=== PATIENT | female | born 1995 | race Caucasian/White ===

== ENCOUNTER 2021-09-18 07:55 | Outpatient (CLI) | payer OTHER, SELFPAY ==
--- NOTE | 2021-09-18 08:10 | US_ITS ---
WS: [id number] ULTRASOUND SOFT TISSUES LEFT neck HISTORY: Cervicalgia/swelling, mass, Lump, neck COMPARISON: None available. TECHNIQUE: 2-D and color Doppler imaging is submitted. Ultrasound is directed to the LEFT paramedian neck, just above the thyroid. There is a complex cystic mass measuring 2.5 x 2.3 x 2.6 cm. A few low-level echoes. There is through transmission. No increas ed vascularity. 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 Differential would include a small epidermoid or lymphatic malformation. US/US soft tissue/extremity 18471 IMPRESSION: Mildly complex cystic mass LEFT paramedian suprahyoid neck. Favor this is proba rox a thyroglossal duct cyst. If further evaluation is necessary CT neck with I V contrast may be helpful.
== END 2021-09-18 07:56 | disposition home or self-care (01) ==
PROVIDERS: PCP Nurse Practitioner; Visit Provider Otolaryngology
DX: R22.1 Localized swelling, mass and lump, neck (principal); Q89.2 Congenital malformations of other endocrine glands
CPT/HCPCS: 76882

== ENCOUNTER 2021-10-09 13:50 | Outpatient (CLI) | payer OTHER, SELFPAY ==
--- NOTE | 2021-10-09 14:07 | CT_ITS ---
WS: [id number] CT NECK WITH CONTRAST HISTORY: Dysphagia, OROPHARYNGEAL PHASE TECHNIQUE: Contiguous 5 mm axial images are performed through the neck with intravenous contrast. Sag ittal and coronal reformats are also submitted. All CT scans at [facility] use at least one o f these dose optimization techniques: automated exposure control; mA and/or kV adjustment per patient size (includes targeted exams where dose is matched to clinical indication); or iterative reconstruc tion. CONTRAST: CONTRAST: Omnipaque 300; 50 mL IV. DLP: 242.61 mGy.cm COMPARISON: Ultrasound 09/18/2021. There is a cystic mass which is well-circumscribed with a slightly enhancing wall centered just infer ior to the hyoid bone. This mass measures 2.6 x 2.3 x 2.2 cm with very slight mass effect upon the ph arynx. Mass is of low signal with mild enhancement of the wall. No adjacent lymph nodes. Small bilateral cervical chain lymph nodes. The visualized submandibular and parotid glands are kendal l. Oropharynx and nasopharynx are negative. Parapharyngeal fat is normal. No osseous abnormalities. Visualized portions of the skull base demonstrate no abnormalities. Orbits and globes are within norm al limits. No soft tissue masses. Visualized paranasal sinuses and mastoid air cells are normal. Lung apices are clear. CT/CT neck w con* [id number] IMPRESSION: 1. Midline cystic neck mass measures 2.6 x 2.3 x 2.2 cm. 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 2. Small bilateral cervical chain lymph nodes are subcentimeter. No additional mass identified.
[2021-10-09] MEDS: iohexol 300 mg/mL 100 mL Btl IV (14:49)
== END 2021-10-09 13:51 | disposition home or self-care (01) ==
LOC: RAD 13:51
PROVIDERS: PCP Nurse Practitioner; Visit Provider Otolaryngology
DX: R13.12 Dysphagia, oropharyngeal phase (principal); Q89.2 Congenital malformations of other endocrine glands
CPT/HCPCS: 70491

== ENCOUNTER 2021-11-17 09:00 | Observation (INO) | payer OTHER, SELFPAY ==
[2021-11-16 09:40] VITALS: BMI 29.7
[2021-11-17] VITALS (51 sets, daily range): BP systolic 101–131; BP diastolic 44–86; PULSE 46–72; RESP 10–26; TEMP 36.9; O2SAT 94–99
[2021-11-17 06:37] LABS: OR HCG Qualitative Urine Negative (Negative)
--- NOTE | 2021-11-17 06:45 | W.PM.OPSUD ---
Surgery/Procedure H&P Update DATE OF PROCEDURE: November 17, 2021 DATE H&P PERFORMED: 10/16/21 PRIMARY INDICATION FOR PROCEDURE: Cystic mass of the anterior midline hyoid area neck PLANNED PROCEDURE: Operation Date: 11/17/21 07:00 Proposed Procedures p Excision Neck Mass/Lesion/lynda procedure [id number],R22.1(Not Applicable) - Junior Recinos MD s Lynda Procedure(Not Applicable) - Junior Recinos MD
--- NOTE | 2021-11-17 06:57 | ANES.PREANE2 ---
Pre-Anesthetic Assessment Height/Weight: Height 1.78 m Weight 93.894 kg Temp Pulse Resp BP Pulse Ox 98.4 F 64 16 129/77 98 11/17/21 06:16 11/17/21 06:16 11/17/21 06:16 11/17/21 06:16 11/17/21 06:16 Operation Date: 11/17/21 07:00 Proposed Procedures p Excision Neck Mass/Lesion/lynda procedure [id number],R22.1(Not Applicable) - Junior Recinos MD s Lynda Procedure(Not Applicable) - Junior Recinos MD Familial anesthetic complications: None Was Beta Kevan taken within 24 hours: N/A Was Clonidine taken within 24 hours: N/A Last intake: Intake Last Liquid Date 11/16/21 Last Liquid Time 22:30 Last Solid Date 11/16/21 Last Solid Time 20:00 Social Tobacco (vapes) and No alcohol Exam alert, oriented x 3, clear to auscultation bilaterally and regular rate & rhythm Airway Mallampati: Class III Dentition: full Anesthetic Plan ASA status: 1 Anesthesia: General Risk of > 500 ml blood loss (7ml/kg in children): No Medications/Allergies Home Medications Medication Instructions Recorded Confirmed Last Taken Type minocycline 4 % topical foam 1 applic TOPICAL DAILY #30 g 12/11/20 11/17/21 Unknown Rx (Amzeeq) tazarotene 0.1 % topical cream 1 applic TOPICAL DAILY #60 g 12/15/20 11/17/21 Unknown Rx triamcinolone acetonide 0.5 % 1 applic TOPICAL BID 14 Days #15 g 04/06/21 11/17/21 Unknown Rx topical cream Allergies Allergy/AdvReac Type Severity Reaction Status Date / Time No Known Allergies Allergy Verified 11/16/21 09:39 [facility] Anesthesia Surgical History No pertinent past surgical history Social History Smoking and tobacco status: current every day smoker History of recent travel: No Female Reproductive History Date of last menstrual period: 11/01/21 Data Anesthesia Cardiac Studies: No Data to Display
[2021-11-17] MEDS: ceFAZolin 2,000 MG in sodium chloride 0.9% (plus) 50 ML 100 MG IV ×3 (07:00→22:48)
[2021-11-17] MEDS: ceFAZolin 1,000 mg SDV 1000 MG IRRIGATION (07:47)
[2021-11-17] MEDS: neomycin-poly-bacitracin oint 28 gm 1 APPLIC TOPICAL (08:48)
--- NOTE | 2021-11-17 09:03 | P.OP_ITS ---
Operative Report Date of procedure: November 17, 2021 Pre-op diagnosis: Anterior hyoid area neck mass Post-op diagnosis: same Post-op findings: Cystic mass of the anterior neck centered on the central hyoid bone Procedure done: Lynda procedure Implants: None Specimens removed/disposition: Anterior hyoid area neck mass Pathology: Anterior hyoid area neck mass Surgeon: Junior Recinos Steam Drier Operator: Nancy Hogan Anesthesia: General Estimated blood loss (mL): 10 IV fluids (mL): 1,000 Complications: None Findings: Large, anterior hyoid area cystic neck mass Condition: stable Disposition: ICU Brief History: 26 yo wf with a h/o an anterior hyoid area neck mass who desires surgical therapy. Procedure: The patient was identified the preoperative holding area and was taken to the operating room where she was placed on the operating table in supine position. Anesthesia was obtained with general endotracheal anesthesia. A horizontal skin incision was marked out over the anterior hyoid area neck mass with a marking pen and the incision was then injected with local anesthesia. The patient was then prepped and draped in the usual sterile fashion. The incision was made with a 15 blade and was carried down through the subcutaneous tissues using a Dunn dissector and bipolar cautery. The dissection proceeded down to the strap muscles which were then divided and in the sagittal plane in the avascular midline. The strap muscles were then divided and dissected off of the neck mass noted above. At this point a circumferential decision began around the mass beginning inferiorly and laterally. The thyroid notch was identified and the thyrohyoid membrane was identified and the mass was dissected from inferiorly to superiorly while keeping these structures intact. The dissection proceeded in a circumferential fashion using the Dunn dissector and bipolar cautery until its attachment point of the mass at the hyoid was identified. Using the Dunn dissector and cautery the central portion of the hyoid bone was dissected free from the surrounding tissues and was cut with bone forceps laterally and the body of the hyoid bone was removed to the lesser cornu. At this point the hyoid bone was grasped and a core of muscle was removed from the base of the tongue region including the central portion of the hyoid bone. At this point the wound was irrigated with a copious amount of normal saline and was inspected for hemostasis which was found to be adequate. The wound was then dusted with Maura and Surgicel was placed in the depth of the wound. A drain was placed in the wound and the wound was then closed with interrupted 4-0 Monocryl sutures subcu and running 5-0 subcuticular Monocryl. Skin was closed with Dermabond and Steri-Strips. At this point the procedure was terminated and control of the patient was returned to anesthesia where she underwent an uneventful reversal of anesthesia and extubation and was taken to the intensive care unit in stable condition. There were no operative or anesthetic complications
--- NOTE | 2021-11-17 09:05 | PC.NURSE ---
arrived from OR, AO x4, no c/o, follows commands
[2021-11-17] MEDS: famotidine 20 mg/2 mL INJ IVP ×2 (09:45→21:17)
[2021-11-17] MEDS: lactated ringers 1,000 ML 100 ML IV ×2 (09:45→19:28)
--- NOTE | 2021-11-17 09:57 | PC.NURSE ---
Patient c/o of severe pain, unable to swallow without increasing pain, Dr. Recinos gave t.o. for 1 to 2 mg morphine IVP q30 min PRN severe pain
[2021-11-17] MEDS: morphine 4 mg/mL SDV 1 mL IVP ×3 (10:17→14:51)
[2021-11-17] MEDS: phenol oral Spray 177 mL 5 SPRAY MUCOUS MEM (13:23)
--- NOTE | 2021-11-17 13:53 | ANE.PACU2 ---
Inpatient post-anesthesia follow up: Airway intact: Yes Vital signs: Temperature 98.4 F Pulse Rate 51 Respiratory Rate 16 Blood Pressure 120/61 Pulse Oximetry 97 Oxygen Delivery Me thod Room Air Oxygen Flow Rate Fraction of Inspir ed Oxygen Hydration adequate: Yes Nausea and vomiting: No Pain level: 1 Mental status: Baseline
[2021-11-17] MEDS: HYDROcodone-acetaminophen 5-325 mg Tablet 1 TAB PO ×2 (14:59→21:16)
[2021-11-17] MEDS: ondansetron 2 mg/ML SDV 2 mL 4 MG IVP ×2 (15:36→19:26)
--- NOTE | 2021-11-17 16:05 | PM.PN ---
Subjective Subjective: 26 yo wf who is day of surgery s/p Lynda procedure. The patient reports some periincisional pain, but is o/w without c/o. She is eating well, and is o/w doing well. Medications: Reviewed: Yes Vitals/I&O/Wt Last Vital Signs Temp 98.4 F 11/17/21 06:16 Pulse 51 L 11/17/21 11:55 Resp 12 11/17/21 14:51 BP 120/61 11/17/21 11:55 Pulse Ox 95 11/17/21 14:51 11/17/21 11/17/21 11/17/21 06:59 14:59 22:59 Intake Total 50 / 50 Balance 50 / 50 Weight last 48 hrs Weight 93.894 kg Physical Exam Const: COMMON NORMALS: no acute distress and patient oriented x3 HENMT: COMMON NORMALS: normocephalic, hearing grossly normal bilaterally and Normal external nose present HEAD & SCALP: normocephalic FACE & SINUS: normal facial exam NOSE: Normal external nose present Eye: COMMON NORMALS: EOMs intact bilaterally and no scleral icterus Neck/C-Spine: COMMON NORMALS: no lymphadenopathy GENERAL: Yes trachea midline and Yes other (Incision intact without swelling or erythema.) Resp: COMMON NORMALS: normal respiratory effort and No use of accessory muscles Cardio: COMMON NORMALS: regular rate and No murmurs present (Cardio) RATE: regular rate Extremity: COMMON NORMALS: normal to inspection Neuro: COMMON NORMALS: patient oriented x3 Urinary Catheter Management: Harris: Cath Placed During This Visit: yes, but has since been removed by the nurse Date Urinary Catheter Removed: 11/17/21 Time Urinary Catheter Discontinued: 08:52 A&P Assessment and plan (1) Thyroglossal duct cyst: Impression: Doing well s/p Lynda procedure Plan: - Observe overnight - Pain control - Regular diet - Closed suction drainage - Anticipate d/c in the am Status: Acute Attestations Medical Necessity Statement*: The patient requires overnight observation of her airway. Coding Level of Care Code Acute Digital Marketing Executive for Chg Fwd Diagnoses Thyroglossal duct cyst Q89.2
[2021-11-18] VITALS (8 sets, daily range): BP systolic 89–131; BP diastolic 43–71; PULSE 47–72; RESP 14–20; TEMP 36.6–36.7; O2SAT 95–100
[2021-11-18] MEDS: lactated ringers 1,000 ML 100 ML IV (04:57)
--- NOTE | 2021-11-18 05:12 | PM.PN ---
Subjective Subjective: 26 yo wf who is POD #1 s/p Lynda procedure. The patient reports that she is doing well. She is swallowing well, and is o/w without c/o. Medications: Reviewed: Yes Vitals/I&O/Wt Last Vital Signs Temp 98.1 F 11/18/21 00:00 Pulse 54 L 11/18/21 02:00 Resp 17 11/18/21 02:00 BP 89/45 11/18/21 02:00 Pulse Ox 95 11/18/21 02:00 O2 Del Method 11/17/21 09:04 11/17/21 11/17/21 11/18/21 14:59 22:59 06:59 Intake Total 50 / 50 1621.667 / 1671.667 998.333 / 2670.000 Balance 50 / 50 1621.667 / 1671.667 998.333 / 2670.000 Weight last 48 hrs Weight 93.894 kg Physical Exam Const: COMMON NORMALS: no acute distress and patient oriented x3 HENMT: COMMON NORMALS: normocephalic and external ears normal HEAD & SCALP: normocephalic FACE & SINUS: normal facial exam EXTERNAL EAR: Yes external ears normal Eye: COMMON NORMALS: EOMs intact bilaterally and no scleral icterus Neck/C-Spine: COMMON NORMALS: no lymphadenopathy GENERAL: Yes trachea midline and Yes other (Neck wound intact and without swelling or erythema. ) Resp: COMMON NORMALS: normal respiratory effort, No use of accessory muscles and clear to auscultation bilaterally AUSCULTATION: clear to auscultation bilaterally Cardio: COMMON NORMALS: regular rate, regular rhythm and No murmurs present (Cardio) RATE: regular rate RHYTHM: regular rhythm GI: COMMON NORMALS: Normal to inspection, nondistended, normoactive bowel sounds present Extremity: COMMON NORMALS: normal to inspection Neuro: COMMON NORMALS: patient oriented x3 and CN's II-XII intact bilaterally Urinary Catheter Management: Harris: Cath Placed During This Visit: yes, but has since been removed by the nurse Date Urinary Catheter Removed: 11/17/21 Time Urinary Catheter Discontinued: 08:52 A&P Assessment and plan (1) Thyroglossal duct cyst: Impression: Doing well s/p Lynda procedure Plan: - D/C to home - Arlen () tabs: take 1-2 tabs po Q5 hours prn pain, #25, NR - Continue closed suction drainage - Apply CIRILO around drain site TID - F/U in Dr. Recinos's office on 11/20/21 @ 13:00 hours - Notify Dr. Recinos for any problems Status: Acute Attestations Medical Necessity Statement*: The patient required overnight observation of her airway Coding Level of Care Code Acute Geriatric Nursing Assistant for Chg Fwd Diagnoses Thyroglossal duct cyst Q89.2
--- NOTE | 2021-11-18 08:35 | PC.NURSE ---
Patient discharged. IV removed and intact. Followup appointment, medication, and drain management education provided. Presecriptions sent with patient.
== END 2021-11-18 08:37 | disposition home or self-care (01) ==
LOC: ICU 09:02
PROVIDERS: Anesthesiology; Admitting Provider Specialist; PCP Nurse Practitioner Family; Visit Provider Specialist
PROC: (CPT 60280; principal; 2021-11-17 07:00)
PROC: (CPT 60280; 2021-11-17 07:00)
DX: Q89.2 Congenital malformations of other endocrine glands (principal); F17.290 Nicotine dependence, other tobacco product, uncomplicated
CPT/HCPCS: 60280; 12345; 84703; 88304; G0378; J0690; J1100; J2250; J2270; J2405; J2704; J2710; J3010; J3490

== ENCOUNTER → 2021-11-26 15:21 | Outpatient (BNVA) | payer OTHER, SELFPAY | PROVIDERS: PCP Nurse Practitioner Family; Visit Provider Nurse Practitioner Family | DX: N92.0 Excessive and frequent menstruation with regular cycle (principal); Q89.2 Congenital malformations of other endocrine glands | CPT/HCPCS: 85025 ==

== ENCOUNTER → 2021-12-21 10:07 | Outpatient (BNVA) | payer OTHER, SELFPAY | PROVIDERS: PCP Nurse Practitioner Family; Visit Provider Obstetrics & Gynecology | DX: N93.9 Abnormal uterine and vaginal bleeding, unspecified (principal) | CPT/HCPCS: 76830 ==

== ENCOUNTER → 2022-01-06 14:20 | Outpatient (BNVA) | payer OTHER, SELFPAY | PROVIDERS: PCP Nurse Practitioner Family; Visit Provider Obstetrics & Gynecology | DX: Z01.419 Encounter for gynecological examination (general) (routine) without abnormal findings (principal) | CPT/HCPCS: 88175 ==

== ENCOUNTER 2022-01-11 16:45 | Emergency (ER) | payer OTHER, SELFPAY ==
[2022-01-11 16:58] VITALS: BP 103/61; PULSE 93; RESP 16; TEMP 38.3; O2SAT 94
[2022-01-11 18:53] VITALS: BP 109/60; PULSE 95; RESP 20; O2SAT 98
[2022-01-11] MEDS: acetaminophen 500 mg Tablet 1000 MG PO (19:05)
[2022-01-11] MEDS: lactated ringers 1,000 ML 999 ML IV (19:20)
[2022-01-11 19:21] LABS: Basophils % 0.2 %; Eosinophils % 0.2 %; Hematocrit 41.1 % (37.0-47.0); Hemoglobin 13.7 g/dL (11.5-15.3); Lymphocytes # 0.3 10^3/uL (0.8-4.8); Lymphocytes % 5.9 %; Mean Corpuscular HGB Conc 33.3 g/dL (30.0-36.0); Mean Corpuscular Hemoglobin 29.5 pg (28.0-34.0); Mean Corpuscular Volume 88.4 fl (81-99); Mean Platelet Volume 11.2 fL (7.4-10.4); Monocytes # 0.7 10^3/uL (0.2-0.9); Monocytes % 15.9 %; Neutrophils # 3.41 10^3/uL (1.8-7.7); Neutrophils % 77.6 %; Nucleated Red Blood Cells % 0 %; Platelet Count 176 10^3/cmm (130-400); Red Blood Count 4.65 10^6/uL (4.1-5.3); Red Cell Distribution Width 12.5 % (12.1-15.1); White Blood Count 4.4 10^3/uL (4.0-10.0)
[2022-01-11 19:35] LABS: Urine Color Orange (Yellow)
[2022-01-11 19:36] LABS: Add Urine Microscopic? YES; Amorphous Sediment Urine 2+ /hpf; Bacteria Urine TRACE /hpf; Bilirubin Urine 2+ (Negative); Blood Urine 3+ (Negative); Glucose Urine UA Norm (Normal); Ketones Urine 2+ (Negative); Leukocyte Esterase Urine Trace (Negative); Mucus Urine 1+ /hpf; Nitrate Urine Positive (Negative); Protein Urine 3+ (Negative); RBC Urine 25-40 /hpf (0-2); Squamous Epithelial Cell Urine 0-4 /hpf (0-5); Urine Appearance Hazy (CLEAR); Urobilinogen Urine 4+ mg/dL (Negative); pH Urine 7 (5-7)
[2022-01-11 19:37] LABS: Add Urine Culture? Yes
[2022-01-11 19:42] LABS: SARS Covid-2 Antigen Positive (Negative)
[2022-01-11 19:47] LABS: Alanine Aminotransferase 41 U/L (0-33); Alkaline Phosphatase 66 U/L (35-105); Anion Gap 15.7 (5-19); Aspartate Amino Transferase 22 U/L (0-32); Blood Urea Nitrogen 9 mg/dL (6-20); Calcium 9.1 mg/dL (8.5-10.5); Carbon Dioxide 22 mmol/L (22-29); Chloride 102 mmol/L (98-107); Globulin 3.2 g/dL (1.3-4.6); Glomerular Filtration Rate 74.6 mL/min (90-130); Glucose 99 mg/dL (65-115); Osmolality Calculated 281 mOsm/kg (285-295); Potassium 3.7 mmol/L (3.5-5.1); Sodium 136 mmol/L (136-145); Total Bilirubin 0.3 mg/dL (0.15-1.2); Total Protein 7.2 g/dL (6.6-8.7)
--- NOTE | 2022-01-11 19:58 | W.ED.FEVER ---
HPI - Fever General: Chief Complaint: Fever Stated Complaint: Fever/Body aches/Headache Time Seen by Provider: 01/11/22 19:03 History of Present Illness: 28 26-year-old female presents with just fever, denies body aches, some nausea, urinary symptoms. She reports she has not felt good for a couple days. Patient denies any cough, shortness of breath, fever or chills. Associated symptoms: Reports chills; Deny abdominal pain, chest pain, nausea or vomiting Review of Systems Const: Reports: fever(s), chills, body aches, fatigue and malaise Card: Denies: chest pain or palpitations Resp: Denies: dyspnea, productive cough or wheezing GI: Denies: abdominal pain, nausea or vomiting Musc: Reports: other (Please see HPI) Skin/Breast: Denies: rash or pruritus PFSH ED PFSH: Surgical History No pertinent past surgical history Family History Father Hypertension Mother Ovarian cancer Denies family history of Colon cancer Diabetes Heart disease Hypercholesteremia Breast cancer Uterine cancer Thyroid disease Stroke Social History Smoking and tobacco status: never smoked Female Reproductive History: Date of last menstrual period: 11/01/21 Course Vital Signs: Vital signs: Vital Signs Temperature 100.9 F H 01/11/22 16:58 Pulse Rate 90 01/11/22 21:01 Respiratory Rate 18 01/11/22 21:01 Blood Pressure 119/70 01/11/22 21:01 Pulse Oximetry 98 01/11/22 21:01 Oxygen Delivery Me thod 01/11/22 16:58 MDM - Fever Medical Decision Making Patient positive for COVID is likely the majority of her symptoms. She does have a urine at questionable for urinary tract infection so we will start her on doxycycline. Discussed supportive care. She should follow with her primary care provider as needed. Patient stable and discharged home Lab Data : 01/11/22 19:14 01/11/22 19:14 Laboratory Results WBC 4.4 10^3/uL (4.0-10.0) 01/11/22 19:14 RBC 4.65 10^6/uL (4.1-5.3) 01/11/22 19:14 Hgb 13.7 g/dL (11.5-15.3) 01/11/22 19:14 Hct 41.1 % (37.0-47.0) 01/11/22 19:14 MCV 88.4 fl (81-99) 01/11/22 19:14 MCH 29.5 pg (28.0-34.0) 01/11/22 19:14 MCHC 33.3 g/dL (30.0-36.0) 01/11/22 19:14 RDW 12.5 % (12.1-15.1) 01/11/22 19:14 Plt Count 176 10^3/cmm (130-400) 01/11/22 19:14 MPV 11.2 fL (7.4-10.4) H 01/11/22 19:14 Neut % (Auto) 77.6 % 01/11/22 19:14 Lymph % (Auto) 5.9 % 01/11/22 19:14 [place] % (Auto) 15.9 % 01/11/22 19:14 Eos % (Auto) 0.2 % 01/11/22 19:14 Baso % (Auto) 0.2 % 01/11/22 19:14 Neut # (Auto) 3.41 10^3/uL (1.8-7.7) 01/11/22 19:14 Lymph # (Auto) 0.3 10^3/uL (0.8-4.8) L 01/11/22 19:14 [place] # (Auto) 0.7 10^3/uL (0.2-0.9) 01/11/22 19:14 Eos # (Auto) 0.0 10^3/uL (0.0-0.8) 01/11/22 19:14 Baso # (Auto) 0.0 10^3/uL (0.0-0.1) 01/11/22 19:14 Nucleated RBC % (auto) 0 % 01/11/22 19:14 Nucleated RBCs # 0.0 /100WBC 01/11/22 19:14 Sodium 136 mmol/L (136-145) 01/11/22 19:14 Potassium 3.7 mmol/L (3.5-5.1) 01/11/22 19:14 Chloride 102 mmol/L (98-107) 01/11/22 19:14 Carbon Dioxide 22 mmol/L (22-29) 01/11/22 19:14 Anion Gap 15.7 (5-19) 01/11/22 19:14 BUN 9 mg/dL (6-20) 01/11/22 19:14 Creatinine 0.9 mg/dL (0.5-0.9) 01/11/22 19:14 GFR Calculation 74.6 mL/min (90-130) L 01/11/22 19:14 Glucose 99 mg/dL (65-115) 01/11/22 19:14 Calculated Osmolality 281 mOsm/kg (285-295) L 01/11/22 19:14 Calcium 9.1 mg/dL (8.5-10.5) 01/11/22 19:14 Total Bilirubin 0.3 mg/dL (0.15-1.2) 01/11/22 19:14 AST 22 U/L (0-32) 01/11/22 19:14 ALT 41 U/L (0-33) H 01/11/22 19:14 Alkaline Phosphatase 66 U/L (35-105) 01/11/22 19:14 Total Protein 7.2 g/dL (6.6-8.7) 01/11/22 19:14 Albumin 4.0 g/dL (3.5-5.2) 01/11/22 19:14 Globulin 3.2 g/dL (1.3-4.6) 01/11/22 19:14 Urine Color [place] (Yellow) 01/11/22 19:10 Urine Appearance Hazy (CLEAR) A 01/11/22 19:10 Urine pH 7 (5-7) 01/11/22 19:10 Ur Specific [place] 1.010 (1.005-1.030) 01/11/22 19:10 Urine Protein 3+ (Negative) H 01/11/22 19:10 Urine Glucose (UA) Norm (Normal) 01/11/22 19:10 Urine Ketones 2+ (Negative) H 01/11/22 19:10 Urine Blood 3+ (Negative) H 01/11/22 19:10 Urine Nitrate Positive (Negative) H 01/11/22 19:10 Urine Bilirubin 2+ (Negative) H 01/11/22 19:10 Urine Urobilinogen 4+ mg/dL (Negative) H 01/11/22 19:10 Ur Leukocyte Esterase Trace (Negative) H 01/11/22 19:10 Urine RBC 25-40 /hpf (0-2) H 01/11/22 19:10 Urine WBC 5-10 /hpf (0-5) H 01/11/22 19:10 Ur Squamous Epith Cells 0-4 /hpf (0-5) H 01/11/22 19:10 Amorphous Sediment 2+ /hpf 01/11/22 19:10 Urine Bacteria Trace /hpf (NONE) 01/11/22 19:10 Urine Mucus 1+ /hpf 01/11/22 19:10 SARS-CoV-2 Ag (Rapid) Positive (Negative) H 01/11/22 19:10 Discharge Plan Discharge Patient Disposition: Home Clinical Impression: COVID, Urinary tract infection Condition: Stable Prescriptions: New doxycycline monohydrate 100 mg capsule 100 mg PO BID 7 Days Qty: 14 0RF ondansetron HCl 4 mg tablet 4 mg PO Q6H PRN (Reason: nausea and vomiting) Qty: 20 0RF No Action montelukast 10 mg tablet 10 mg PO DAILY levonorgestrel-ethinyl estrad [Aviane] 0.1-20 mg-mcg tablet 1 tab PO DAILY Qty: 28 12RF levocetirizine [Xyzal] 5 mg tablet 5 mg PO DAILY amoxicillin-pot clavulanate 875-125 mg tablet 1 tab PO BID Qty: 20 0RF Discharge Orders: Discharge ED (Routine); Ordered 01/11/22 Ordered By: Valentin Avendaño Referrals: Helen Maki, INHALATION THERAPY TEACHER [Primary Care Provider] - Discharge Diet: Advance as tolerated Discharge Activity: Increase activity as tolerated Patient Instructions: Urinary Tract Infection in Women (DC), COVID-19 (Coronavirus Disease 2019) (ED), Opioid Safety, Pain Management Activity Restrictions/Additional Instructions: Drink plenty of fluids, Tylenol ibuprofen as needed for fever body aches and chills Of your primary care provider in a couple days for recheck. Return to the ER as needed for worsening symptoms Coding Level of Care Code ED Lumber Planer for Rosannag Fannie
[2022-01-11 21:01] VITALS: BP 119/70; PULSE 90; RESP 18; O2SAT 98
== END 2022-01-11 21:02 | disposition home or self-care (01) ==
PROVIDERS: Emergency Medicine; Emergency Provider Student in an Organized Health Care Education/Training Program; PCP Nurse Practitioner Family
DX: U07.1 COVID-19 (principal); N39.0 Urinary tract infection, site not specified
CPT/HCPCS: 80053; 81001; 85025; 87086; 87426; 96360; 96361; 99284

== ENCOUNTER → 2022-06-09 12:33 | Outpatient (BNVA) | payer OTHER, SELFPAY | PROVIDERS: PCP Nurse Practitioner Family; Visit Provider Family Medicine | DX: R82.90 Unspecified abnormal findings in urine (principal); R39.9 Unspecified symptoms and signs involving the genitourinary system; L65.9 Nonscarring hair loss, unspecified; N39.0 Urinary tract infection, site not specified | CPT/HCPCS: 81000; 87077; 87086; 87184 ==

== ENCOUNTER → 2022-06-11 10:02 | Outpatient (BNVA) | payer OTHER, SELFPAY | PROVIDERS: PCP Nurse Practitioner Family; Visit Provider Nurse Practitioner Family | DX: J02.9 Acute pharyngitis, unspecified (principal); U07.1 COVID-19; N92.0 Excessive and frequent menstruation with regular cycle; Q89.2 Congenital malformations of other endocrine glands; N93.9 Abnormal uterine and vaginal bleeding, unspecified | CPT/HCPCS: 84443 ==

== ENCOUNTER → 2022-07-15 15:24 | Outpatient (BNVA) | payer OTHER, SELFPAY | PROVIDERS: PCP Clinical Nurse Specialist Adult Health; Visit Provider Nurse Practitioner Family | DX: R82.90 Unspecified abnormal findings in urine (principal); N39.0 Urinary tract infection, site not specified | CPT/HCPCS: 81000; 87077; 87086; 87184 ==

== ENCOUNTER → 2022-08-18 16:47 | Outpatient (BNVA) | payer OTHER, SELFPAY | PROVIDERS: PCP Clinical Nurse Specialist Adult Health; Visit Provider Nurse Practitioner | DX: N30.01 Acute cystitis with hematuria (principal) | CPT/HCPCS: 81000; 87077; 87086; 87184 ==

== ENCOUNTER → 2023-02-14 16:18 | Outpatient (BNVA) | payer OTHER, SELFPAY | PROVIDERS: PCP Family Medicine; Visit Provider Family Medicine | DX: R30.0 Dysuria (principal) | CPT/HCPCS: 81003; 87077; 87086; 87184 ==

== ENCOUNTER → 2023-03-25 09:40 | Outpatient (BNVA) | payer OTHER, SELFPAY | PROVIDERS: PCP Family Medicine; Visit Provider Family Medicine | DX: N39.0 Urinary tract infection, site not specified (principal); N92.1 Excessive and frequent menstruation with irregular cycle; R05.9 Cough, unspecified | CPT/HCPCS: 80053; 81000; 81025; 84443; 85025 ==

== ENCOUNTER → 2023-04-07 15:40 | Outpatient (BNVA) | payer OTHER, SELFPAY | PROVIDERS: PCP Family Medicine; Visit Provider Family Medicine | DX: N39.0 Urinary tract infection, site not specified (principal) | CPT/HCPCS: 81003 ==

== ENCOUNTER → 2023-04-08 08:51 | Outpatient (BNVA) | payer OTHER, SELFPAY | PROVIDERS: PCP Family Medicine; Visit Provider Family Medicine | DX: N39.0 Urinary tract infection, site not specified (principal) | CPT/HCPCS: 87086 ==

== ENCOUNTER 2023-04-27 13:09 | Outpatient (RCR) | payer OTHER, SELFPAY | END 2023-05-25 23:59 | disposition home or self-care (01) | LOC: SST 13:09 | PROVIDERS: PCP Family Medicine; Visit Provider Family Medicine | DX: R05.9 Cough, unspecified (principal) | CPT/HCPCS: 92610 ==

== ENCOUNTER 2023-07-29 08:36 | Outpatient (CLI) | payer OTHER, SELFPAY ==
--- NOTE | 2023-07-29 08:41 | CT_ITS ---
WS: [id number] CT ABDOMEN AND PELVIS WITH AND WITHOUT CONTRAST HISTORY: RECURRENT UTI TECHNIQUE: Unenhanced 5 mm axial imaging first performed through the abdomen. Post contrast imaging t hrough the abdomen and pelvis. Oral contrast has not been provided. Sagittal and coronal reformats a re submitted. All CT scans at [facility] use at least one of these dose optimization techniqu es: automated exposure control; mA and/or kV adjustment per patient size (includes targeted exams whe re dose is matched to clinical indication); or iterative reconstruction. CONTRAST: None DLP: 1626.04 mGy.cm COMPARISON: None available. Lung bases are clear. Heart size is normal. No hiatal hernia. Kidneys are normal size. No perinephric stranding or nephrolithiasis. No obstruction. No nephritis or mass. No uroepithelial lesions. Ureters are normal size with no obstruction. Very small portion of t he LEFT ureter is not distended with contrast. Normal size liver. 13 mm hepatic hypodensity just posterior to the mid line posterior RIGHT hepatic v ein is probably hemangioma. This fills in on the delayed imaging. Normal portal vein. Pancreas is nor mal. Spleen is normal with exception of a very tiny subcapsular 3 mm low-attenuation mass which may b e a cyst. Too small to characterize. Gallbladder is negative. No adrenal mass. Normal aorta. Normal m esenteric arteries. Normal GI tract. No obstruction. No colitis. No appendicitis. Normal urinary bladder. No intraluminal filling defect. Normal appearance of the uterus. No ascites or free fluid. No bone destruction. IMPRESSION: 1. No renal obstruction, nephritis or pyelonephritis. 2. No renal calcifications. 3. Negative urinary bladder. 4. 13 mm hepatic hypodensity is most likely a hemangioma.
[2023-07-29] MEDS: iohexol 350 mg/mL 500 mL Btl (per mL) IV (09:14)
== END 2023-07-29 08:37 | disposition home or self-care (01) ==
LOC: RAD 08:36
PROVIDERS: PCP Family Medicine; Visit Provider Nurse Practitioner Family
DX: N39.0 Urinary tract infection, site not specified (principal)
CPT/HCPCS: 74178; Q9967

== ENCOUNTER 2023-08-12 09:48 | Outpatient (CLI) | payer OTHER, SELFPAY ==
--- NOTE | 2023-08-12 10:00 | FL_ITS ---
WS: [id number] Exam: FL barium swallow modifd [id number] Date/Time of Exam: 08/12/2023 10:19 AM Reason For Exam: Fluoroscopy time: 1min [id number] minutes # of spot films: 0 Modified barium swallow test was performed in conjunction with the speech therapy service. Oropharyngeal phase of swallowing was normal. The patient tolerated all consistencies of barium mixtu re foodstuffs without aspiration or penetration. The patient ingested a barium tablet without difficu lty. IMPRESSION: 1. Unremarkable modified barium swallow test. A separate report and recommendations will follow from the speech therapy service.
== END 2023-08-12 09:49 | disposition home or self-care (01) ==
LOC: RAD 09:48
PROVIDERS: PCP Family Medicine; Visit Provider Family Medicine
DX: R05.9 Cough, unspecified (principal)
CPT/HCPCS: 74230; 92611

== ENCOUNTER 2023-08-22 11:14 | Outpatient (CLI) | payer OTHER, SELFPAY ==
[2023-08-22 11:48] LABS: Basophils % 0.6 %; Eosinophils % 0.9 %; Hematocrit 42.8 % (36-47); Lymphocytes # 1.4 10^3/uL (0.8-4.8); Lymphocytes % 29.5 %; Mean Corpuscular HGB Conc 33.4 g/dL (30-55); Mean Corpuscular Hemoglobin 29.7 pg (27-33); Mean Corpuscular Volume 88.8 fl (85-98); Mean Platelet Volume 10.9 fL (7.4-10.4); Monocytes # 0.6 10^3/uL (0.2-0.9); Monocytes % 13.4 %; Neutrophils # 2.57 10^3/uL (1.8-7.7); Neutrophils % 55.4 %; Nucleated Red Blood Cells % 0 %; Platelet Count 242 10^3/cmm (157-399); Red Blood Count 4.82 10^6/uL (3.85-5.65); Red Cell Distribution Width 12.3 % (12.1-15.1); White Blood Count 4.64 10^3/uL (3.29-11.43)
[2023-08-22 12:10] LABS: Blood Urea Nitrogen 9 mg/dL (6-20); Calcium 8.7 mg/dL (8.5-10.5); Carbon Dioxide 24 mmol/L (22-29); Chloride 105 mmol/L (98-107); Glomerular Filtration Rate 98.3 mL/min (90-130); Glucose 106 mg/dL (65-115); Osmolality Calculated 289 mOsm/kg (285-295); Sodium 140 mmol/L (136-145)
[2023-08-22 12:26] LABS: Anion Gap 15.1 (5-19); Potassium 4.1 mmol/L (3.5-5.1)
== END 2023-08-22 11:15 | disposition home or self-care (01) ==
PROVIDERS: PCP Family Medicine; Visit Provider Urology
DX: Z01.812 Encounter for preprocedural laboratory examination (principal); N30.31 Trigonitis with hematuria; N35.92 Unspecified urethral stricture, female
CPT/HCPCS: 36415; 80048; 85025

== ENCOUNTER → 2023-08-25 09:50 | Outpatient (BNVA) | payer OTHER, SELFPAY | PROVIDERS: PCP Family Medicine; Visit Provider Internal Medicine Cardiovascular Disease | DX: Z01.818 Encounter for other preprocedural examination (principal) | CPT/HCPCS: 93005 ==

== ENCOUNTER → 2024-01-25 18:14 | Outpatient (BNVA) | payer OTHER, SELFPAY | PROVIDERS: PCP Family Medicine; Visit Provider Registered Nurse Neonatal Intensive Care | DX: R50.9 Fever, unspecified (principal) | CPT/HCPCS: 87400; 87426 ==

== ENCOUNTER → 2024-06-29 09:30 | Outpatient (BNVA) | payer BC, SELFPAY | PROVIDERS: PCP Family Medicine; Visit Provider Nurse Practitioner Women's Health | DX: Z11.3 Encounter for screening for infections with a predominantly sexual mode of transmission (principal); N92.6 Irregular menstruation, unspecified; N89.8 Other specified noninflammatory disorders of vagina; B00.9 Herpesviral infection, unspecified | CPT/HCPCS: 84702; 87661 ==

== ENCOUNTER 2024-12-28 07:20 | Emergency (ER) | payer BC, SELFPAY ==
[2024-12-28 07:26] VITALS: BP 156/89; PULSE 80; RESP 18; TEMP 36.7; O2SAT 100; BMI 28.4
--- NOTE | 2024-12-28 07:26 | ECG_ITS ---
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 Measurements Intervals [place] Rate: 78 P: 67 MO: 145 QRS: 54 QRSD: 92 T: 60 QT: 375 QTc: 428 Interpretive Statements SINUS RHYTHM WITH SINUS ARRHYTHMIA POSSIBLE LEFT ATRIAL ENLARGEMENT [-0.1mV P-WAVE IN V1/V2] POSSIBLE RIGHT VENTRICULAR CONDUCTION DELAY [RSR (QR) IN V1/V2] Compared to ECG 08/25/2023 09:56:49 Atrial flutter no longer present Electronically Signed On 12-28-2024 20:21:41 CDT by John Turpin M.D. [email or web address]
--- OUTSIDE RECORDS SUMMARY | 2024-12-28 07:27 | XMS_ITS | Patient Health Record ---
Author Organization [facility], [facility] Address [address] [place] [address] Care Team Providers Care Lead Caregiver Name Role Phone Yara Carranza Primary Care Provider Unavailab gen LIEBERMANREJI Unavailable [phone] JENNIFER VIKAS Unavailable [phone] Allergies No Known Allergies Results Component Value Reference Range Notes Urinalysis, Routine Reviewed date:01/04/2024 02:52:02 PM Interpretation: Performing Lab: Notes/Report: Urine-Color yellow Appearance clear Glucose - Bilirubin - Ketones - Specific [place] 1.020 Occult Blood 3+ pH 6.0 Urine Protein - Urobilinogen,Semi-Qn - Nitrite, Urine - WBC Esterase - Urinalysis, Routine Reviewed date:09/04/2024 03:06:52 PM Interpretation: Performing Lab: Notes/Report: Urine-Color yellow Appearance clear Glucose - Bilirubin - Ketones - Specific [place] 1.015 Occult Blood 3+ pH 7.0 Urine Protein - Urobilinogen,Semi-Qn - Nitrite, Urine - WBC Esterase - Urinalysis, Routine Reviewed date:04/26/2024 03:52:10 PM Interpretation: Performing Lab: Notes/Report: Urine-Color dark yellow Appearance cloudy Glucose - Bilirubin - Ketones - Specific [place] 1.025 Occult Blood 3+ pH 6.0 Urine Protein +- Urobilinogen,Semi-Qn - Nitrite, Urine + WBC Esterase - Gx - Recurrent Persistent Co mplicated UTI Reviewed date:04/30/2024 08:35:27 AM Interpretation: Performing Lab:, [id number] Notes/Report: PatientName: : Gender: PatientRelation: PatientAddress: , , , InsuranceName: InsuranceCode: Test Result: Guidance 7.0, Voided Urine, UTI Surgical, Test Result: PATHOGENIC DNA DETECTED#A*F UTIAbnormalFlag: Guidance 7.0, Voided Urine, UTI Surgical, UTIAbnormalFlag: A Reason For Referral No Information Medications Medication SIG (Take, Route, Frequency, Duration) Notes Start Date End Date Status Cefuroxime Axetil 250 MG 1 tablet Orally every 12 hrs 06/08/2023 Not-Taking Levocetirizine Dihydrochloride Not-Taking Venlafaxine HCl ER 37.5 MG 1 capsule wit h food Orally Once a day Active Montelukast Sodium 10 MG 1 tablet Orally Once a day Not-Taking Levonorgestrel-Eth Estrad & FA Active Nitrofurantoin Macrocrystal 50 MG 1 capsule Orally Once a day Not-Taking metroNIDAZOLE 500 MG 1 tablet Orally two times a day Not-Taking Xyzal Not-Taking Fluconazole 150 MG 1 tablet Orally daily Not-Taking Social History Tobacco Use: Social History Observation Description Date Details (start date - stop date) Former Smoker NA - NA Tobacco Use/Smoking Question Answer Notes Tobacco use: former smoker How long has it been since you last smoked? 1-5 years Problems Problem Type SNOMED Code ICD Code Onset Dates Problem Status W/U Status Risk Notes Problem Trigonitis (57017016) Trigonitis with hematuria (N30.31) Active confirmed Problem Hematuria co-occurrent and due to chronic cystitis (disorder) (13505108196008 1) Chronic cystitis with hematuria (N30.21) Active confirmed Problem Urinary tract infectious disease (11386325) UTI (urinary tract infection) (N39.0) Active confirmed Problem Anxiety about health (156696611) Anxiety about health (F41.8) Active confirmed Problem Urethral stricture (disorder) (27669772) Urethral stricture unspecified (N35.919) Active confirmed Problem Spasm of bladder (766171397) Bladder spasms (N32.89) Active confirmed Vital Signs Heart Rate 65 /min 09/04/2024 Blood pressure diastolic 74 mm Hg 09/04/2024 Height-cm 177.8 cm 09/04/2024 Weight-kg 92.53 kg 09/04/2024 Height 70 in 09/04/2024 Blood pressure systolic 116 mm Hg 09/04/2024 Weight 204 lbs 09/04/2024 BMI 29.27 kg/m2 09/04/2024 Procedures Procedure Date Ordered Date Performed Result Body Sit e Bladder Scan 01/04/2024 01/04/2024 [id number] Encounters Encounter Location Date Provider Diagnosis [facility], [facility] [address] [place] [address] 01/04/2024 REJI REANO Trigonitis with hematuria N30.31 ; Urethral stricture unspecified N35.919 ; Chronic cystitis with hematuria N30.21 ; Bladder spasms N32.89 ; Hematuria R31.9 ; Weak urinary stream R39.12 and Anxiety about health F41.8 [facility] [address] [place] [address] 04/26/2024 REJI REANO Trigonitis with hematuria N30.31 ; Urethral stricture unspecified N35.919 ; Chronic cystitis with hematuria N30.21 ; Bladder spasms N32.89 ; Hematuria R31.9 ; Weak urinary stream R39.12 and Anxiety about health F41.8 [facility] [address] [place] [address] 09/04/2024 VIKAS MOHAN Trigonitis with hematuria N30.31 ; Chronic cystitis with hematuria N30.21 ; Bladder spasms N32.89 ; Hematuria R31.9 ; Weak urinary stream R39.12 ; Anxiety about health F41.8 and Other stricture of urethra in female N35.82 [facility] [address] [place] [address] 04/30/2024 REJI REANO [facility] [address] [place] [address] 09/18/2024 REJI REANO [facility] [address] [place] [address] 12/14/2024 REJI REANO [facility] [address] [place] [address] 12/14/2024 REJI BRYSONANO Recurrent UTI N39.0 Assessments Encounter Date Diagnosis (ICD Code) Assessment Notes Treatment Notes Treatment Clinical Notes Section Notes 01/04/2024 Trigonitis with hematuria (ICD-10 - N30.31) 04/26/2024 Trigonitis with hematuria (ICD-10 - N30.31) 09/04/2024 Trigonitis with hematuria (ICD-10 - N30.31) She had fairly severe stricture disease that was dilated from 12 [place] up to 22 [place] and pretty uncomfortable for her during this dilation but overall she tolerated. I believe this is the cause of her symptoms and she had minimal trigonitis or bladder pathology on cystoscopy. We discussed a Q 4-month regimen but she will cancel dilation if she is doing well. Return sooner with breakthrough symptoms. Bladder health regimen once again reinforced as she is failed much response with postcoital Macrobid. Following cystoscopy, we have spent over 10 minutes in further consultation and treatment planning with greater than 50% of that time in direct [id number] discussion. 09/04/2024 Chronic cystitis with hematuria (ICD-10 - N30.21) She had fairly severe stricture disease that was dilated from 12 [place] up to 22 [place] and pretty uncomfortable for her during this dilation but overall she tolerated. I believe this is the cause of her symptoms and she had minimal trigonitis or bladder pathology on cystoscopy. We discussed a Q 4-month regimen but she will cancel dilation if she is doing well. Return sooner with breakthrough symptoms. Bladder health regimen once again reinforced as she is failed much response with postcoital Macrobid. Following cystoscopy, we have spent over 10 minutes in further consultation and treatment planning with greater than 50% of that time in direct [id number] discussion. 04/26/2024 Urethral stricture unspecified (ICD-10 - N35.919) 12/14/2024 Recurrent UTI (ICD-10 - N39.0) 09/04/2024 Bladder spasms (ICD-10 - N32.89) She had fairly severe stricture disease that was dilated from 12 [place] up to 22 [place] and pretty uncomfortable for her during this dilation but overall she tolerated. I believe this is the cause of her symptoms and she had minimal trigonitis or bladder pathology on cystoscopy. We discussed a Q 4-month regimen but she will cancel dilation if she is doing well. Return sooner with breakthrough symptoms. Bladder health regimen once again reinforced as she is failed much response with postcoital Macrobid. Following cystoscopy, we have spent over 10 minutes in further consultation and treatment planning with greater than 50% of that time in direct vsrg-un-xcer discussion. 04/26/2024 Chronic cystitis with hematuria (ICD-10 - N30.21) 01/04/2024 Urethral stricture unspecified (ICD-10 - N35.919) 01/04/2024 Chronic cystitis with hematuria (ICD-10 - N30.21) 04/26/2024 Bladder spasms (ICD-10 - N32.89) 09/04/2024 Hematuria (ICD-10 - R31.9) She had fairly severe stricture disease that was dilated from 12 [place] up to 22 [place] and pretty uncomfortable for her during this dilation but overall she tolerated. I believe this is the cause of her symptoms and she had minimal trigonitis or bladder pathology on cystoscopy. We discussed a Q 4-month regimen but she will cancel dilation if she is doing well. Return sooner with breakthrough symptoms. Bladder health regimen once again reinforced as she is failed much response with postcoital Macrobid. Following cystoscopy, we have spent over 10 minutes in further consultation and treatment planning with greater than 50% of that time in direct mvqq-zx-tpur discussion. 04/26/2024 Hematuria (ICD-10 - R31.9) 09/04/2024 Weak urinary stream (ICD-10 - R39.12) She had fairly severe stricture disease that was dilated from 12 [place] up to 22 [place] and pretty uncomfortable for her during this dilation but overall she tolerated. I believe this is the cause of her symptoms and she had minimal trigonitis or bladder pathology on cystoscopy. We discussed a Q 4-month regimen but she will cancel dilation if she is doing well. Return sooner with breakthrough symptoms. Bladder health regimen once again reinforced as she is failed much response with postcoital Macrobid. Following cystoscopy, we have spent over 10 minutes in further consultation and treatment planning with greater than 50% of that time in direct fxen-ly-cyym discussion. 01/04/2024 Bladder spasms (ICD-10 - N32.89) 01/04/2024 Hematuria (ICD-10 - R31.9) 04/26/2024 Weak urinary stream (ICD-10 - R39.12) 09/04/2024 Anxiety about health (ICD-10 - F41.8) She had fairly severe stricture disease that was dilated from 12 [place] up to 22 [place] and pretty uncomfortable for her during this dilation but overall she tolerated. I believe this is the cause of her symptoms and she had minimal trigonitis or bladder pathology on cystoscopy. We discussed a Q 4-month regimen but she will cancel dilation if she is doing well. Return sooner with breakthrough symptoms. Bladder health regimen once again reinforced as she is failed much response with postcoital Macrobid. Following cystoscopy, we have spent over 10 minutes in further consultation and treatment planning with greater than 50% of that time in direct znxu-fc-isov discussion. 04/26/2024 Anxiety about health (ICD-10 - F41.8) 09/04/2024 Other stricture of urethra in female (ICD-10 - N35.82) She had fairly severe stricture disease that was dilated from 12 [place] up to 22 [place] and pretty uncomfortable for her during this dilation but overall she tolerated. I believe this is the cause of her symptoms and she had minimal trigonitis or bladder pathology on cystoscopy. We discussed a Q 4-month regimen but she will cancel dilation if she is doing well. Return sooner with breakthrough symptoms. Bladder health regimen once again reinforced as she is failed much response with postcoital Macrobid. Following cystoscopy, we have spent over 10 minutes in further consultation and treatment planning with greater than 50% of that time in direct gvhq-kl-ongm discussion. 01/04/2024 Weak urinary stream (ICD-10 - R39.12) 01/04/2024 Anxiety about health (ICD-10 - F41.8) 01/04/2024 Other UA with microscopic hematuria today, but she reports being on her menstrual cycle. [place] still seems to be her main trigger for UTI. Refill the Macrobid for post-coital use. Recommend starting a vaginal probiotic and cranberry supplement for UTI prevention as well. She will RTC in 3 months with UA. If she is still having persistent infections, she would like repeat cysto. Instructed her to call closer to appointment and let us know if needs changed to scope. All questions that were asked were answered. Patient satisfied with plan of care. 04/26/2024 Other UA infected. As discussed at last visit, patient would like to proceed with repeat cystoscopy due to persisent infections after fulguration and slow stream. She will RTC for next available cysto and possible dilation with Dr. Mohan. Send urine for PCR today, call with results and adjust treatment as indicated. Plan Of Treatment Pending Test Test Name Order Date CT Abd & Pelvis W & [place] contrast [id number] 06/08/2023 BUN, Creatinine 06/08/2023 Bladder Scan 06/08/2023 Next Appt Details Provider Name:VIKAS Carson, 01/15/2025 02:50:00 PM, [address] [place], [address], Insurance Providers Payer Name Payer Address Payer Phone Subscriber Number Group Number Insured Name Patient Relationship to Insured Coverage Start Date Coverage End Date [place] [address] [place], [place] [id number] Iliana Leon Self - patient is the insured Medical (General) History Medical History History ICD Code recurrent UTIs Surgical History Surgery Date(Month/Year) thyroglossal duct cyst removal cysto/fulguration with urethral dilation 09/09/23 Hospitalization History Reason Date(Month/Year) see prior sx hx
--- NOTE | 2024-12-28 07:40 | XR_ITS ---
WS: [id number] Portable AP upright chest, 12/28/2024 Clinical Data: CHEST TIGHTNESS; HEAVINESS; ANXIETY Comparison: None. Findings: No nodules, masses or effusions are seen. The heart is normal. The pulmonary vascularity is not increased. No pneumonia or pneumothorax is seen. There are monitor leads on the chest wall. XR/XR chest 1V portable [id number] Impression: Negative chest.
--- NOTE | 2024-12-28 07:48 | ED_ITS ---
HPI - Anxiety 2 General: Chief Complaint: Anxiety Stated Complaint: chest pains and sob n/v and [place] on right side Time Seen by Provider: 12/28/24 07:42 History of Present Illness: 29-year-old female who presents emergenc y room with chest pressure and anxiety. She says my whole life is ripped apart and that she has been feeling very anxious. She has had a pressure in her chest. Has had numbness down the right side. No fevers. No cough. No altered mental status. No focal motor deficits. Related Data Home Medications ?Medication ?Instructions ?Recorded ?Confirmed amitriptyline 10 mg tablet 10 mg PO ONCE PRN 01/18/24 09/03/24 Previous Rx's ?Medication ?Instructions ?Recorded tretinoin 0.05 % topical cream 1 applic topical Q2D #2 0 grams 05/13/23 levonorgestrel-ethinyl estradiol See Rx Instructions . Route 01/18/24 0.1 mg-20 mcg tablet .COMPLEX #84 tabs clindamycin 1 %-benzoyl peroxide 5 1 applic topical BI D 30 days #50 09/03/24 % topical gel grams meloxicam 7.5 mg tablet 7.5 mg PO DAILY #30 tabs 04/18 cetirizine 10 mg tablet 10 mg PO DAILY #90 tabs 11/23 07/17 venlafaxine 75 mg capsule,extended See Rx Instructions .Route 12/05/24 release 24 hr .COMPLEX #90 caps fluconazole 150 mg tablet 150 mg PO DAILY #1 tab 12/06 lorazepam 1 mg tablet (Ativan) 1 mg PO BID PRN dizzine ss or 12/28/24 vertigo #10 tabs Allergies Allergy/AdvReac Type Severity Reaction Status Date / Time No Known Allergies Allergy Verified 09/03/24 13:56 Review of Systems 2 Narrative: Constitutional symptoms: Negative except as documented in HPI. Skin symptoms: Negative except as documented in HPI. Eye symptoms: Negative except as documented in HPI. ENMT symptoms: Negative except as documented in HPI. Respiratory symptoms: Negative except as documented in HPI. Cardiovascular symptoms: Negative except as documented in HPI. Gastrointestinal symptoms: Negative except as documented in HPI. Genitourinary symptoms: Negative except as documented in HPI. Musculoskeletal symptoms: Negative except as documented in HPI. Neurologic symptoms: Negative except as documented in HPI. Psychiatric symptoms: Negative except as documented in HPI. Endocrine symptoms: Negative except as documented in HPI. PFSH ED 2 PFSH: Medical History (Updated 12/28/24 @ 08:45 by Mariam Garcia MD) Recurrent UTI No pertinent past medical history neghx: htn,dm,thyroid,dvt/pe PCP: [facility] History History of bladder surgery (~10/2023) cauterization of the bladder wall for recurrent UTI; peformed by Kimberlee in [place] Hx of dilation of urethra (~10/2023) performed by Dr. Mohan History of thyroglossal duct cyst removal Family History Father , NE @ 54 Hypertension CAD (coronary artery disease) NE @ 54 Cancer leukemia Mother Cancer cervical-- likely not ca; no chemo/radiation/hysterectomy Denies family history of Colon cancer Diabetes Heart disease Hypercholesteremia Breast cancer Uterine cancer Thyroid disease Stroke Social History Smoking and tobacco/nicotine status: current every day tobacco/nicotine user Physical Exam 2 Narrative: EXAM NARRATIVE: General: Alert, no acute distress. Skin: Warm, dry. Head: Normocephalic, atraumatic. Neck: Supple, trachea midline. Eye: Extraocular movements are intact. Ears, nose, mouth and throat: Tacky oral mucosa Cardiovascular: Regular, Normal peripheral perfusion. Respiratory: Lungs are clear to auscultation, respirations are non-labored, breath sounds are equal, Symmetrical chest wall expansion. Gastrointestinal: Soft, Nontender, Non distended Musculoskeletal: Normal ROM, no deformity. Neurological: Alert and oriented, No focal neurological deficit observed. Psychiatric: Cooperative, patient does appear anxious Course 2 Vital Signs: Vital signs: Vital Signs Temperature 98.1 F 12/28/24 07:26 Pulse Rate 73 12/28/24 08:20 Respiratory Rate 19 H 12/28/24 08:20 Blood Pressure 131/75 12/28/24 08:20 Pulse Oximetry 93 12/28/24 08:20 Oxygen Delivery Me thod Room Air 12/28/24 07:26 MDM - Anxiety Medical Decision Making Differential diagnosis for patient with chest pain includes but is not limited to and based on the above HPI, review of systems and physical exam: Pneumonia. unstable angina. angina. Acute coronary syndrome / NE. Pulmonary embolism. Costochondritis / musculoskeletal. Pleurisy. Pericarditis. Esophageal spasm. Pancreatis. Cholecystitis. Orders placed to evaluate differential diagnosis based on the above differential, HPI and physical exam EKG: Time 7:26 AM. Rate 78. Normal sinus rhythm, No ST-T changes, no ectopy, normal AL & QRS intervals, This was reviewed and interpreted by myself the ER physician at 7:31 AM Chest x-ray: No acute process. No infiltrate. No pneumothorax. This was reviewed and interpreted by myself the emergency room physician. I also reviewed the radiology report. Lab Review: Laboratory results were reviewed and interpreted by myself the emergency room physician. No leukocytosis. No anemia. No renal failure. Troponin is negative I reviewed the patient's medical record. Patient has a history of recurrent urinary tract infections. She follows with family practice here at [facility]. Reexamination: Patient says she felt somewhat better after her first dose of Ativan but requested another dose before going home. She says she hopes to be able to get some sleep. I am writing her short prescription for as needed Ativan at home. Discussed that she needs to follow with her primary provider or with a therapist to soon as possible. Patient also says she has not been able to eat or drink very well and that she feels very dehydrated and requested fluids. Assessment and plan: Anxiety Noncardiac chest pain Mild dehydration ? Total of 2 mg Ativan and 1 L normal saline bolus. - Discharged home - Discussed plan with patient. Answered any questions. - Evaluation and treatment of this problem were appropriate in the emergency setting. Lab Data 12/28/24 07:52 12/28/24 07:52 Radiology Impressions Chest X-Ray 12/28/24 07:40 Impression: Negative chest. Laboratory Results WBC 9.04 10^3/uL (3.29-11.43) 12/28/24 07:52 RBC 4.72 10^6/uL (3.85-5.65) 12/28/24 07:52 Hgb 14.00 g/dL (11.27-16.99) 12/28/24 07:52 Hct 40.6 % (36-47) 12/28/24 07:52 MCV 86.0 fl (85-98) 12/28/24 07:52 MCH 29.7 pg (27-33) 12/28/24 07:52 MCHC 34.5 g/dL (30-55) 12/28/24 07:52 RDW 12.4 % (12.1-15.1) 12/28/24 07:52 Plt Count 235 10^3/cmm (157-399) 12/28/24 07:52 MPV 10.5 fL (7.4-10.4) H 12/28/24 07:52 Neut % (Auto) 77.6 % 12/28/24 07:52 Lymph % (Auto) 13.8 % 12/28/24 07:52 [place] % (Auto) 7.4 % 12/28/24 07:52 Eos % (Auto) 0.7 % 12/28/24 07:52 Baso % (Auto) 0.3 % 12/28/24 07:52 Neut # (Auto) 7.01 10^3/uL (1.8-7.7) 12/28/24 07:52 Lymph # (Auto) 1.3 10^3/uL (0.8-4.8) 12/28/24 07:52 [place] # (Auto) 0.7 10^3/uL (0.2-0.9) 12/28/24 07:52 Eos # (Auto) 0.1 10^3/uL (0.0-0.8) 12/28/24 07:52 Baso # (Auto) 0.0 10^3/uL (0.0-0.1) 12/28/24 07:52 Nucleated RBC % (auto) 0 % 12/28/24 07:52 Nucleated RBCs # 0.0 /100WBC 12/28/24 07:52 Sodium 138 mmol/L (136-145) 12/28/24 07:52 Potassium 3.2 mmol/L (3.5-5.1) L 12/28/24 07:52 Chloride 101 mmol/L (98-107) 12/28/24 07:52 Carbon Dioxide 19 mmol/L (22-29) L 12/28/24 07:52 Anion Gap 21.2 (5-19) H 12/28/24 07:52 BUN 7 mg/dL (6-20) 12/28/24 07:52 Creatinine 0.7 mg/dL (0.5-0.9) 12/28/24 07:52 GFR Calculation 97.6 mL/min (90-130) 12/28/24 07:52 Glucose 101 mg/dL (65-115) 12/28/24 07:52 Calculated Osmolality 284 mOsm/kg (285-295) L 12/28/24 07:52 Calcium 9.1 mg/dL (8.5-10.5) 12/28/24 07:52 Total Bilirubin 0.9 mg/dL (0.15-1.2) 12/28/24 07:52 AST 26 U/L (0-32) 12/28/24 07:52 ALT 39 U/L (0-33) H 12/28/24 07:52 Alkaline Phosphatase 71 U/L (35-105) 12/28/24 07:52 Troponin T Baseline < 6 ng/L (0-10) 12/28/24 07:52 Total Protein 7.3 g/dL (6.6-8.7) 12/28/24 07:52 Albumin 4.3 g/dL (3.5-5.2) 12/28/24 07:52 Globulin 3.0 g/dL (1.3-4.6) 12/28/24 07:52 All radiology interpretation(s) finalized by discharge Discharge Plan Discharge Patient Disposition: Home Clinical Impression: Acute anxiety, Non-cardiac chest pain Condition: Stable Prescriptions: New lorazepam [Ativan] 1 mg tablet 1 mg PO BID PRN (Reason: dizziness or vertigo) Qty: 10 0RF No Action amitriptyline 10 mg tablet 10 mg PO ONCE PRN levonorgestrel-ethinyl estrad 0.1-20 mg-mcg tablet See Rx Instructions .ROUTE .COMPLEX Qty: 84 3RF Dose Instruction: Take 1 tablet by mouth once daily Rx Instructions: Take 1 tablet by mouth once daily tretinoin 0.05 % cream 1 applic topical Q2D Qty: 20 0RF clindamycin-benzoyl peroxide 1-5 % gel 1 applic topical BID 30 Days Qty: 50 0RF meloxicam 7.5 mg tablet 7.5 mg PO DAILY Qty: 30 0RF venlafaxine 75 mg capsule,extended release 24hr See Rx Instructions .ROUTE .COMPLEX Qty: 90 0RF Dose Instruction: Take 1 capsule by mouth once daily Rx Instructions: Take 1 capsule by mouth once daily cetirizine 10 mg tablet 10 mg PO DAILY Qty: 90 0RF fluconazole 150 mg tablet 150 mg PO DAILY Qty: 1 0RF Discharge Orders: Discharge ED (Routine); Ordered 12/28/24 Ordered By: Mariam Garcia Referrals: Yara Carranza MD [Primary Care Provider, Family Practice] Discharge Diet: Usual diet Discharge Activity: Increase activity as tolerated Patient Instructions: Anxiety (ED), Opioid Safety, Pain Management, Patient Portal & Ray Instructions Activity Restrictions/Additional Instructions: Please follow-up with your primary provider with the [facility] behavioral health crisis center. Phone number is [phone]. There is a 24- hour crisis hotline with the number of [phone]. Hours of operation are 8 AM to 6 PM. If you develop any suicidal thoughts or other thoughts of harming yourself please return to the emergency room immediately. Thank you for choosing [facility] for your healthcare needs today. Please realize this is an emergency room and that we are providing you with a medical screening exam and this may not be complete and all inclusive of all the testing and or work up that you may need to determine your ailment or severity of your illness. You have been screened and evaluated and felt safe for discharge. Health conditions do change or evolve sometimes and as such it is important that you follow up with your Primary Doctor to be re checked, 3-5 days is a general good time frame for follow up. You are always welcome to return to the ED for re assessment if your symptoms are worsening or you have new concerns Print Language: Ukrainian Coding Level of Care Code ED Order Booker for Seth Greco
[2024-12-28 07:56] LABS: Hematocrit 40.6 % (36-47); Hemoglobin 14.00 g/dL (11.27-16.99); Mean Corpuscular HGB Conc 34.5 g/dL (30-55); Mean Corpuscular Hemoglobin 29.7 pg (27-33); Mean Corpuscular Volume 86.0 fl (85-98); Nucleated Red Blood Cells % 0 %; Platelet Count 235 10^3/cmm (157-399); Red Blood Count 4.72 10^6/uL (3.85-5.65); White Blood Count 9.04 10^3/uL (3.29-11.43)
[2024-12-28] MEDS: LORazepam 1 MG/0.5 ML injection IVP ×2 (08:01→08:54)
[2024-12-28 08:14] LABS: Troponin(5th) Baseline < 6 ng/L (0-10)
--- NOTE | 2024-12-28 08:17 | PC.NURSE ---
provided pt with urine cup, instructed on need for urine sample. pt states there is nothing to give . normal saline infusing by gravity at this time.
[2024-12-28 08:18] LABS: Alanine Aminotransferase 39 U/L (0-33); Albumin Level 4.3 g/dL (3.5-5.2); Alkaline Phosphatase 71 U/L (35-105); Anion Gap 21.2 (5-19); Aspartate Amino Transferase 26 U/L (0-32); Blood Urea Nitrogen 7 mg/dL (6-20); Calcium 9.1 mg/dL (8.5-10.5); Carbon Dioxide 19 mmol/L (22-29); Chloride 101 mmol/L (98-107); Creatinine Clr Calc Pharmacy 141.5935; Globulin 3.0 g/dL (1.3-4.6); Glucose 101 mg/dL (65-115); Osmolality Calculated 284 mOsm/kg (285-295); Potassium 3.2 mmol/L (3.5-5.1); Sodium 138 mmol/L (136-145); Total Protein 7.3 g/dL (6.6-8.7)
[2024-12-28 08:20] VITALS: BP 131/75; PULSE 73; RESP 19; O2SAT 93
--- NOTE | 2024-12-28 08:38 | PC.NURSE ---
educated pt on need for UA sample, states unable to urinate at this time. discussed possible need for straight cath
[2024-12-28 09:02] VITALS: BP 123/88; PULSE 74; RESP 12; O2SAT 93
--- NOTE | 2024-12-28 09:02 | PC.NURSE ---
pt reports will have ride home, able to take Ativan prior to d/c
[2024-12-28 09:23] VITALS: BP 125/87; PULSE 88; RESP 14; O2SAT 99
== END 2024-12-28 09:26 | disposition home or self-care (01) ==
PROVIDERS: Emergency Provider Emergency Medicine; PCP Family Medicine
DX: F41.8 Other specified anxiety disorders (principal); R07.89 Other chest pain; Z72.0 Tobacco use
CPT/HCPCS: 36415; 71045; 80053; 84484; 85025; 93005; 96361; 96374; 96376; 99285; J2060; J7030

== ENCOUNTER → 2025-03-29 11:41 | Outpatient (BNVA) | payer BC, SELFPAY | PROVIDERS: PCP Family Medicine; Visit Provider Family Medicine | DX: N39.0 Urinary tract infection, site not specified (principal); R30.0 Dysuria | CPT/HCPCS: 81000; 87086 ==